=== PATIENT | male | born 1955 | race Caucasian/White ===

== ENCOUNTER → 2016-09-19 | Outpatient (CLI) | payer OTHER ==
[~2016-09-19] MED LIST: ALPR0.5T7 PO; AMLO10TA PO; ASP81TEC PO; ATOR20TA66 PO; ATR20T PO; CHLO1CAP PO; CHLO1CAP61 PO; CIPR500T78 PO; DOXYCYCLINE PO; ESOM40SU PO; NF-ESOM40C PO; NFNEB10T; NFNEB10T PO; PANT40TA PO; PNT40TEC PO; POLY119P5 PO; SCR1T1 PO; SUCR1TAB PO; TORADOL PO; ZLP10T PO; ZOLP12.541 PO
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
--- NOTE | 2016-09-19 13:29 | Diagnostic Imaging Report ---
INDICATION: Abdominal pain. TECHNIQUE: Gallbladder sonography performed in a routine fashion. FINDINGS: The liver shows diffuse increased echogenicity compatible with fatty infiltration. There is an ill-defined hypoechoic area in the liver which may be due to focal sparing, this measured about 1.7 cm. Gallbladder was unremarkable. No gallstones or gallbladder wall thickening. Common duct not well-seen due to overlying gas. Pancreas is not well seen due to overlying gas. Right kidney was normal at 9.9 cm in length. There is no ascites. IMPRESSION: There is diffuse increased echogenicity of liver compatible with fatty change. There is a focal hypoechoic area in the liver which may be due to asymmetric fatty change, consider either followup ultrasound or CT as clinically warranted. The gallbladder itself appeared unremarkable with no stones or wall thickening. Common duct was not well seen. Dictated by: Dictated on workstation # [id number]
== END ==
LOC: RAD 08:59
PROVIDERS: ATTEND Nurse Practitioner Family
DX: R10.11 Right upper quadrant pain (principal); R10.13 Epigastric pain; R14.2 Eructation
CPT/HCPCS: 76705

== ENCOUNTER → 2016-10-06 | Outpatient (CLI) | payer OTHER ==
[~2016-10-06] MED LIST changes: +CATHETER FLUSH 10 ML SYR IV PRN; +IOHEXOL 350 MG/ML 100 ML (OMNIPAQUE 350) VIAL IV ONE; +NS 100 ML (IVPB) BAG IV ONE
--- OUTSIDE RECORDS SUMMARY | 2016-10-06 10:56 | XMS REPORT | Continuity of Care Document ---
Author Author [facility] Organization [facility] Address Unknown Phone Unavailable Care Team Providers Care Clinical Research Management Associate Name Role Phone PCP Unavailable Source Comments Some departments are not documenting in the electronic medical record. If you do not see the information that you expected, contact Release of Information in the Health Information Management department at [phone] for further assistance in locating additional records.[facility] Active Allergies and Adverse Reactions Allergen [...] Taken Blood Pressure 120/83 09/11/2015 8:00 AM PLUMBING MECHANIC Pulse 81 09/11/2015 8:00 AM PLUMBING MECHANIC Temperature 36.5 C (97.7 F) 09/11/2015 8:00 AM PLUMBING MECHANIC Respiratory Rate - - Height 1.778 m (5' 10") 09/10/2015 7:48 PM PLUMBING MECHANIC Weight 82 kg (180 lb 12.4 oz) 09/10/2015 7:48 PM PLUMBING MECHANIC Body Mass Index 25.94 09/10/2015 7:48 PM PLUMBING MECHANIC Oxygen Saturation 95% 09/11/2015 8:00 AM PLUMBING MECHANIC Plan of Care Health Maintenance Due Date Last Done Comments Physical (Comprehensive) 1962 Exam Pertussis Vaccine 1967 Tetanus Vaccine 1973 Colorectal Cancer 2006 Screening Influenza Vaccine 05/12/2016 Results from Last 3 Months Not on file
[2016-10-06 11:34] LABS: BLOOD UREA NITROGEN 10 MG/DL (7-18); BUN/CREATININE RATIO 10; CREATININE SERUM 0.98 MG/DL (0.60-1.30); GFR ESTIMATED > 60
--- NOTE | 2016-10-06 13:46 | Diagnostic Imaging Report ---
PROCEDURE: CT chest with contrast only. TECHNIQUE: Multiple contiguous axial images were obtained through the chest after administration of intravenous contrast. INDICATION: Right lung nodule FINDINGS: The previous CT chest exam of 10/14/2014 noted a 1.3 x 1.4 cm well-circumscribed nodule in the right lung base. This finding appeared stable when compared to the prior CT chest exam of 02/14/2014. On this exam, the nodule is again identified and does not appear to have changed adversely in size or appearance. The nodule now measures 1.1 x 1.2 cm. The stability of this finding over a greater than two-year period would suggest that it is a benign process. The lungs are otherwise generally clear. There is no sign of failure, pneumonia or pleural effusion to suggest an acute abnormality. The azygos lobe and the posttraumatic changes involving the right thorax seen previously are again visualized and stable. There is no fracture or acute bony abnormality appreciated. The heart size is within normal limits and stable when compared to the prior exam. There is no defect within the pulmonary arteries to indicate a pulmonary embolus. Aorta is not abnormally dilated and there is no sign of dissection. There are a few small mediastinal nodes. These are nonspecific. The thyroid gland is not enlarged. The sections through the upper abdomen again show that the liver is of lower density than usually seen. 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 There is no acute abnormality of the visualized upper abdomen. IMPRESSION: 1. The nodule in the right lung base seen previously is again evident and no different. The stability of this finding over a greater than two-year period would suggest that it is a benign process. 2. There is no evidence for an acute cardiopulmonary abnormality. 3. The posttraumatic changes involving the right thorax seen previously are stable. There is no acute bony abnormality identified. Dictated by: Dictated on workstation # [id number]
== END ==
LOC: RAD 10:53
PROVIDERS: ATTEND Nurse Practitioner Family
DX: R91.1 Solitary pulmonary nodule (principal); Z72.0 Tobacco use
CPT/HCPCS: 36415; 71260; 82565; 84520

== ENCOUNTER → 2016-10-21 | Outpatient (CLI) | payer OTHER ==
[~2016-10-21] MED LIST changes: -IOHEXOL 350 MG/ML 100 ML (OMNIPAQUE 350) VIAL IV ONE; -NS 100 ML (IVPB) BAG IV ONE
--- OUTSIDE RECORDS SUMMARY | 2016-10-21 07:07 | XMS REPORT | Continuity of Care Document ---
Author Author [facility] Organization [facility] Address Unknown Phone Unavailable Care Team Providers Care Aircraft Cleaner Name Role Phone PCP Unavailable Source Comments Some departments are not documenting in the electronic medical record. If you do not see the information that you expected, contact Release of Information in the Health Information Management department at [phone] for further assistance in locating additional records.[facility] Active Allergies and Adverse Reactions Allergen [...] Taken Blood Pressure 120/83 09/11/2015 8:00 AM WATER POLLUTION CONTROL TECHNICIAN Pulse 81 09/11/2015 8:00 AM WATER POLLUTION CONTROL TECHNICIAN Temperature 36.5 C (97.7 F) 09/11/2015 8:00 AM WATER POLLUTION CONTROL TECHNICIAN Respiratory Rate - - Height 1.778 m (5' 10") 09/10/2015 7:48 PM WATER POLLUTION CONTROL TECHNICIAN Weight 82 kg (180 lb 12.4 oz) 09/10/2015 7:48 PM WATER POLLUTION CONTROL TECHNICIAN Body Mass Index 25.94 09/10/2015 7:48 PM WATER POLLUTION CONTROL TECHNICIAN Oxygen Saturation 95% 09/11/2015 8:00 AM WATER POLLUTION CONTROL TECHNICIAN Plan of Care Health Maintenance Due Date Last Done Comments Physical (Comprehensive) 1962 Exam Pertussis Vaccine 1967 Tetanus Vaccine 1973 Colorectal Cancer 2006 Screening Influenza Vaccine 05/12/2016 Results from Last 3 Months Not on file
--- NOTE | 2016-10-21 10:09 | Diagnostic Imaging Report ---
EXAMINATION: HIDA with EF measurements Indication: Abdominal pain TECHNIQUE: After the intravenous administration of 5.4 mCi of Tc 99m Choletec, imaging over the abdomen was obtained. This was followed by administration of Ensure orally to stimulate intrinsic CCK secretion, followed by continued imaging with ejection fraction measured. FINDINGS: There is homogeneous uptake in the liver with prompt bile duct and gallbladder filling seen. Bowel activity is seen at 30 minutes. Based on further imaging and gallbladder area of interest activity measurements after the administration of Ensure, the gallbladder ejection fraction is estimated at 88%. IMPRESSION: 1. Normal hepatobiliary uptake and Gallbladder filling. 2. Normal gallbladder ejection fraction. Dictated by: Dictated on workstation # [id number]
== END ==
LOC: CARD 07:04
PROVIDERS: ATTEND Nurse Practitioner Family
DX: R10.9 Unspecified abdominal pain (principal)
CPT/HCPCS: 78227

== ENCOUNTER 2016-10-24 12:03 | Emergency (ER) | payer OTHER ==
[~2016-10-24] VITALS: Ht 177.8 cm; Wt 86.2 kg
[~2016-10-24 12:03] MED LIST changes: -CATHETER FLUSH 10 ML SYR IV PRN; -NFNEB10T; -POLY119P5 PO
--- OUTSIDE RECORDS SUMMARY | 2016-10-24 12:08 | XMS REPORT | Continuity of Care Document ---
Author Author [facility] Organization [facility] Address Unknown Phone Unavailable Care Team Providers Care Automotive Design Layout Drafter Name Role Phone PCP Unavailable Source Comments Some departments are not documenting in the electronic medical record. If you do not see the information that you expected, contact Release of Information in the Health Information Management department at [phone] for further assistance in locating additional records.[facility] Active Allergies and Adverse Reactions Allergen [...] Taken Blood Pressure 120/83 09/11/2015 8:00 AM CHARGE AUTHORIZER Pulse 81 09/11/2015 8:00 AM CHARGE AUTHORIZER Temperature 36.5 C (97.7 F) 09/11/2015 8:00 AM CHARGE AUTHORIZER Respiratory Rate - - Height 1.778 m (5' 10") 09/10/2015 7:48 PM CHARGE AUTHORIZER Weight 82 kg (180 lb 12.4 oz) 09/10/2015 7:48 PM CHARGE AUTHORIZER Body Mass Index 25.94 09/10/2015 7:48 PM CHARGE AUTHORIZER Oxygen Saturation 95% 09/11/2015 8:00 AM CHARGE AUTHORIZER Plan of Care Health Maintenance Due Date Last Done Comments Physical (Comprehensive) 1962 Exam Pertussis Vaccine 1967 Tetanus Vaccine 1973 Colorectal Cancer 2006 Screening Influenza Vaccine 05/12/2016 Results from Last 3 Months Not on file
[2016-10-24] MEDS ORDERED: NFNEB10T (12:39)
[2016-10-24 12:55] LABS: BASOPHILS # (AUTO) 0.1 10^3/uL (0.0-0.1); BASOPHILS % (AUTO) 1 % (0-10); EOSINOPHILS # (AUTO) 0.1 10^3/uL (0.0-0.3); EOSINOPHILS % (AUTO) 1 % (0-10); LYMPHOCYTES # (AUTO) 1.6 X 10^3 (1.0-4.0); LYMPHOCYTES % (AUTO) 14 % (12-44); MEAN CORPUSCULAR HEMOGLOBIN 32 PG (25-34); MEAN CORPUSCULAR HGB CONC 36 G/DL (32-36); MEAN CORPUSCULAR VOLUME 88 FL (80-99); MEAN PLATELET VOLUME 9.9 FL (7.4-10.4); MONOCYTES # (AUTO) 0.5 X 10^3 (0.0-1.0); MONOCYTES % (AUTO) 5 % (0-12); NEUTROPHILS # (AUTO) 8.6 X 10^3 (1.8-7.8); NEUTROPHILS % (AUTO) 80 % (42-75); PLATELET COUNT 235 10^3/uL (130-400); RED BLOOD COUNT 5.32 10^6/uL (4.35-5.85); RED CELL DISTRIBUTION WIDTH 12.6 % (10.0-14.5); WHITE BLOOD COUNT 10.8 10^3/uL (4.3-11.0)
[2016-10-24 13:14] LABS: ALANINE AMINOTRANSFERASE 41 U/L (0-55); ALBUMIN 3.9 G/DL (3.2-4.5); ANION GAP 9 MMOL/L (5-14); ASPARTATE AMINO TRANSFERASE 25 U/L (5-34); BILIRUBIN,TOTAL 0.4 MG/DL (0.1-1.0); BLOOD UREA NITROGEN 13 MG/DL (7-18); BUN/CREATININE RATIO 15; CALCIUM 9.1 MG/DL (8.5-10.1); CARBON DIOXIDE 24 MMOL/L (21-32); CHLORIDE 105 MMOL/L (98-107); CREATININE SERUM 0.88 MG/DL (0.60-1.30); GFR ESTIMATED > 60; GLUCOSE 110 MG/DL (70-105); LIPASE 35 U/L (8-78); SODIUM 138 MMOL/L (135-145); TOTAL PROTEIN 6.7 G/DL (6.4-8.2)
[2016-10-24] MEDS ORDERED: LIDOCAINE UROJET 2% GEL 10 ML PKG TOP ONE (14:00)
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
[2016-10-24 14:20] LABS: BILIRUBIN,URINE NEGATIVE (NEGATIVE); KETONES,URINE NEGATIVE (NEGATIVE); LEUKOCYTE ESTERASE ,URINE NEGATIVE (NEGATIVE); NITRITE,URINE NEGATIVE (NEGATIVE); PH,URINE 6.5 (5-9); PROTEIN,URINE NEGATIVE (NEGATIVE); UROBILINOGEN,URINE NORMAL (NORMAL)
[2016-10-24] MEDS ORDERED: KETOROLAC 30 MG/ML VIAL IVP ONE (14:30)
--- NOTE | 2016-10-24 15:07 | Diagnostic Imaging Report ---
EXAM: Upright and supine views of the abdomen. INDICATION: Lower abdominal pain. FINDINGS: There is no pneumoperitoneum. There are no dilated bowel loops of significant air-fluid level seen. Mild to moderate amounts of fecal material seen in the colon and rectum. Nonspecific bowel gas pattern seen in the small bowel. No suspicious calcifications. IMPRESSION: No pneumoperitoneum or evidence of bowel obstruction. Dictated by: Dictated on workstation # [id number]
[2016-10-24] MEDS ORDERED: IOHEXOL 350 MG/ML 100 ML (OMNIPAQUE 350) VIAL IV ONE (16:15)
[2016-10-24] MEDS ORDERED: NS 100 ML (IVPB) BAG IV ONE (16:15)
[2016-10-24 16:57] VITALS: BP 100/57
--- NOTE | 2016-10-24 16:58 | Diagnostic Imaging Report ---
PROCEDURE: CT abdomen and pelvis with contrast. TECHNIQUE: Multiple contiguous axial images were obtained through the abdomen and pelvis after administration of intravenous contrast. INDICATION: Abdominal pain. COMPARISON: CT abdomen and pelvis without and with IV contrast on 02/14/2014. FINDINGS: The 1.5 cm pulmonary nodule in the right lung base has been stable since the 2013 exam and should be benign. Chronic right rib fractures. Yan catheter. Arterial calcifications including aortic. No aortic aneurysm. The liver, gallbladder, pancreas, spleen, adrenals, kidneys, and appendix are negative. Large amount of stool in the rectum and distal sigmoid colon. No free intraperitoneal air/fluid, lymphadenopathy, or evidence of bowel obstruction. Degenerative changes in the lumbosacral junction. IMPRESSION: 1. No acute CT findings in the abdomen or pelvis. 2. Large amount of stool in the rectum and distal sigmoid is nonspecific but can be seen with a fecal impaction. There is no evidence of bowel obstruction. Dictated by: Dictated on workstation # [id number]
[2016-10-24] MEDS ORDERED: BISACODYL 10 MG SUPP (DULCOLAX) PR ONE (17:30)
[2016-10-24] MEDS ORDERED: POLY119P5 PO (17:37)
[2016-10-24 17:41] VITALS: BP 109/70
== END 2016-10-24 17:44 | disposition home or self-care (01) ==
LOC: EDUNIT# 12:03 → ER 12:05
DX: K59.00 Constipation, unspecified (principal); R33.9 Retention of urine, unspecified; Z79.899 Other long term (current) drug therapy
CPT/HCPCS: 36415; 74020; 74177; 80053; 81000; 83690; 85025; 86141; 96374

== ENCOUNTER → 2017-01-30 | Outpatient (CLI) | payer OTHER ==
[~2017-01-30] MED LIST changes: +NFNEB10T; +POLY119P5 PO
[2017-01-30 11:03] LABS: BASOPHILS # (AUTO) 0.1 10^3/uL (0.0-0.1); BASOPHILS % (AUTO) 1 % (0-10); EOSINOPHILS # (AUTO) 0.2 10^3/uL (0.0-0.3); EOSINOPHILS % (AUTO) 3 % (0-10); LYMPHOCYTES # (AUTO) 2.5 X 10^3 (1.0-4.0); LYMPHOCYTES % (AUTO) 31 % (12-44); MEAN CORPUSCULAR HEMOGLOBIN 31 PG (25-34); MEAN CORPUSCULAR HGB CONC 35 G/DL (32-36); MEAN CORPUSCULAR VOLUME 91 FL (80-99); MEAN PLATELET VOLUME 10.2 FL (7.4-10.4); MONOCYTES # (AUTO) 0.8 X 10^3 (0.0-1.0); MONOCYTES % (AUTO) 10 % (0-12); NEUTROPHILS # (AUTO) 4.6 X 10^3 (1.8-7.8); NEUTROPHILS % (AUTO) 56 % (42-75); PLATELET COUNT 233 10^3/uL (130-400); RED CELL DISTRIBUTION WIDTH 13.4 % (10.0-14.5); WHITE BLOOD COUNT 8.1 10^3/uL (4.3-11.0)
== END ==
LOC: CARD 10:17
PROVIDERS: ATTEND Family Medicine
DX: K44.9 Diaphragmatic hernia without obstruction or gangrene (principal)
CPT/HCPCS: 36415; 85025; 93005

== ENCOUNTER 2017-05-12 09:45 | Outpatient (RCR) | payer OTHER ==
[2017-05-12 10:43] LABS: BASOPHILS # (AUTO) 0.1 10^3/uL (0.0-0.1); BASOPHILS % (AUTO) 1 % (0-10); EOSINOPHILS # (AUTO) 0.2 10^3/uL (0.0-0.3); EOSINOPHILS % (AUTO) 2 % (0-10); LYMPHOCYTES % (AUTO) 29 % (12-44); MEAN CORPUSCULAR HEMOGLOBIN 31 PG (25-34); MEAN CORPUSCULAR HGB CONC 34 G/DL (32-36); MEAN CORPUSCULAR VOLUME 91 FL (80-99); MEAN PLATELET VOLUME 10.9 FL (7.4-10.4); MONOCYTES # (AUTO) 0.7 X 10^3 (0.0-1.0); MONOCYTES % (AUTO) 10 % (0-12); NEUTROPHILS % (AUTO) 58 % (42-75); PLATELET COUNT 240 10^3/uL (130-400); RED BLOOD COUNT 5.87 10^6/uL (4.35-5.85); RED CELL DISTRIBUTION WIDTH 13.6 % (10.0-14.5)
[2017-05-12 11:17] LABS: ALANINE AMINOTRANSFERASE 36 U/L (0-55); ALBUMIN 4.6 GM/DL (3.2-4.5); ANION GAP 13 MMOL/L (5-14); ASPARTATE AMINO TRANSFERASE 24 U/L (5-34); BILIRUBIN,TOTAL 0.7 MG/DL (0.1-1.0); BLOOD UREA NITROGEN 12 MG/DL (7-18); BUN/CREATININE RATIO 13; CARBON DIOXIDE 24 MMOL/L (21-32); CHLORIDE 100 MMOL/L (98-107); CREATININE SERUM 0.95 MG/DL (0.60-1.30); GFR ESTIMATED > 60; GLUCOSE 100 MG/DL (70-105); LACTATE DEHYDROGENASE 197 U/L (125-220); POTASSIUM 3.9 MMOL/L (3.6-5.0); SODIUM 137 MMOL/L (135-145); TOTAL PROTEIN 8.3 GM/DL (6.4-8.2)
[2017-05-19 14:38] LABS: JAK2 MUTATION Not Detected
== END 2017-06-10 | disposition home or self-care (01) ==
LOC: ONC 09:45
PROVIDERS: ATTEND Internal Medicine Hematology & Oncology
DX: D58.2 Other hemoglobinopathies (principal); R53.83 Other fatigue; I10 Essential (primary) hypertension; E78.2 Mixed hyperlipidemia; K21.9 Gastro-esophageal reflux disease without esophagitis; F17.210 Nicotine dependence, cigarettes, uncomplicated; Z79.899 Other long term (current) drug therapy
CPT/HCPCS: 36415; 80053; 81270; 82375; 82668; 82728; 83540; 83615; 85025; 99214

== ENCOUNTER → 2017-11-06 | Outpatient (CLI) | payer OTHER | LOC: CARD 12:16 | PROVIDERS: ATTEND Internal Medicine Cardiovascular Disease | DX: I25.10 Atherosclerotic heart disease of native coronary artery without angina pectoris (principal); I10 Essential (primary) hypertension; E78.2 Mixed hyperlipidemia; K22.70 Barrett's esophagus without dysplasia; Z72.0 Tobacco use | CPT/HCPCS: 93306 ==

== ENCOUNTER → 2017-11-08 | Outpatient (CLI) | payer OTHER ==
[~2017-11-08] MED LIST changes: +CATHETER FLUSH 10 ML SYR IV PRN; +REGADENOSON 0.4 MG/5 ML SYR (LEXISCAN) IV ONE
[2017-11-08 13:30] VITALS: BP 116/75
[2017-11-08 13:43] VITALS: BP 126/84
[2017-11-08 13:46] VITALS: BP 111/80
--- NOTE | 2017-11-09 09:59 | STRESS TEST ---
DATE OF SERVICE: 11/08/2017 LEXISCAN MYOVIEW STRESS TEST REPORT REFERRING PHYSICIAN: Dr. Waters. Baseline heart rate is 68, baseline blood pressure 102/82. Baseline EKG sinus rhythm with no ischemic changes. SUMMARY: The patient was injected with 10.42 mCi of technetium-99 Myoview and the resting images were obtained. Then, the patient received 0.4 mg of Lexiscan followed by 30.4 mCi of technetium-99 Myoview. Throughout the test, there were no EKG changes. The resting and stress images were reviewed and compared in the short axis, horizontal long axis, and vertical long axis views. Review of the images showed good radiotracer uptake with no significant ischemia or infarction. SSS is 0. TID value 0.89. On the gated images, the left ventricle appeared to be in normal size with normal contractility. Calculated ejection fraction of 66%. CONCLUSION: 1. The patient tolerated Lexiscan well. 2. No ischemia or infarction on SPECT images. 3. Normal left ventricular size with normal contractility. Calculated ejection fraction of 66%. Job ID: [id number] DocumentID: [id number] Dictated Date: 11/09/2017 07:48:59 [employer] Worker Date: 11/09/2017 09:58:59 Dictated By: MELODY VALENCIA MD
== END ==
LOC: CARD 11:30
PROVIDERS: ATTEND Internal Medicine Cardiovascular Disease
DX: I25.10 Atherosclerotic heart disease of native coronary artery without angina pectoris (principal); I10 Essential (primary) hypertension; E78.2 Mixed hyperlipidemia; K22.70 Barrett's esophagus without dysplasia; Z72.0 Tobacco use
CPT/HCPCS: 78452; 93017

== ENCOUNTER → 2022-10-05 | Outpatient (CLI) | payer OTHER ==
[~2022-10-05] MED LIST changes: -CATHETER FLUSH 10 ML SYR IV PRN; +CATHETER FLUSH 10 ML SYR IVP PRN; -REGADENOSON 0.4 MG/5 ML SYR (LEXISCAN) IV ONE
== END ==
LOC: CARD 10:11
PROVIDERS: ATTEND Internal Medicine Cardiovascular Disease
DX: I35.1 Nonrheumatic aortic (valve) insufficiency (principal); I10 Essential (primary) hypertension
CPT/HCPCS: 93306